=== PATIENT | male | born 1990 | race African-American/Black ===

== ENCOUNTER 2021-11-28 22:16 | Emergency (ER) | payer OTHER ==
[~2021-11-28] VITALS: Ht 185.4 cm; Wt 48.5 kg
[2021-11-28 22:57] VITALS: BP 135/80
[2021-11-28] MEDS ORDERED: IBUPROFEN 800 MG TAB PO ONE (23:30)
--- NOTE | 2021-11-29 00:30 | NUR ---
Osito acuña in [facility] - 11/29/21 at 0236 by MAME PATIENT LEFT WITHOUT BEING SEEN BY DR. LORENZ. NO FURTHER CARE PROVIDED FOR PATIENT.
--- NOTE | 2021-11-29 00:30 | NUR ---
Note domenico in ED - 11/29/21 at 0236 by [email or web address] ATTEMPT TO LOCATE PT. NO RESPONSE.
--- NOTE | 2021-11-29 00:45 | NUR ---
Note domenico in ED - 11/29/21 at 0236 by [email or web address] SECOND ATTEMPT TO LOCATE PT. NO RESPONSE.
--- NOTE | 2021-11-29 01:00 | NUR ---
Note domenico in ED - 11/29/21 at 0236 by [email or web address] THIRD ATTEMPT TO LOCATE PT. NO RESPONSE.
--- NOTE | 2021-11-29 01:10 | NUR ---
[employer] CALLED PT 3 TIMES WITH NO RESPONSE
--- NOTE | 2021-11-29 02:36 | NUR ---
PATIENT ELOPED FROM FACILITY. DISCHARGE INSTRUCTIONS NOT GIVEN TO PATIENT. NOTIFIED.
[2021-11-29] MEDS ORDERED: IBUP-2213 PO (15:39)
== END 2021-11-29 02:36 | disposition left against medical advice (07) ==
LOC: MED 22:16
DX: M25.572 Pain in left ankle and joints of left foot (principal)
CPT/HCPCS: 99282

== ENCOUNTER 2021-11-29 13:17 | Emergency (ER) | payer OTHER ==
[~2021-11-29] VITALS: Ht 185.4 cm; Wt 93.9 kg
[2021-11-29 14:14] VITALS: BP 133/60
[2021-11-29] MEDS ORDERED: IBUPROFEN 600 MG TAB PO ONE (14:55)
[2021-11-29] MEDS ORDERED: IBUP-2213 PO (15:39)
--- NOTE | 2021-11-29 16:50 | NUR ---
31 y/o M BIB self from home c/o left ankle pain s/p fall 5 days ago. Patient A&Ox4, ambulatory with slow, steady gait, reports going down stairs and slipping on his left foot. Pt states swelling worsen since injury and reports pain worsens with weight bearing. States pain 8/10, throbbing/constant, non-radiating. Swelling noted to L ankle and foot. PMH/Sx/Meds: denies NKDA
--- NOTE | 2021-11-29 16:52 | NUR ---
Patient discharged with v/s stable. Written and verbal after care instructions given and explained. Patient alert, oriented and verbalized understanding of instructions. Ambulatory with crutches, steady gait. All questions addressed prior to discharge. ID band removed. Patient advised to follow up with PMD. Rx of Ibuprofen given. Patient educated on indication of medication including possible reaction and side effects. Opportunity to ask questions provided and answered.
== END 2021-11-29 16:52 | disposition home or self-care (01) ==
LOC: MED 13:17
DX: S93.402A Sprain of unspecified ligament of left ankle, initial encounter (principal); S93.602A Unspecified sprain of left foot, initial encounter; R03.0 Elevated blood-pressure reading, without diagnosis of hypertension; Z79.899 Other long term (current) drug therapy; W01.0XXA Fall on same level from slipping, tripping and stumbling without subsequent striking against object, initial encounter; Y93.89 Activity, other specified; Y92.89 Other specified places as the place of occurrence of the external cause; Y99.8 Other external cause status
CPT/HCPCS: 73610; 73630; 99284